=== PATIENT | female | born 1970 | race Caucasian/White ===

== ENCOUNTER 2017-06-13 11:47 | Emergency (ER) | payer OTHER ==
--- NOTE | 2017-06-13 12:14 | UC ---
Jennifer Ramos Rebecca, scribed for Che Persaud MD on 06/13/17 at 1159 . Respiratory Complaint HPI - HPI Summary HPI Summary: Pt is a 47 y/o F who presents to [facility] c/o sinus pressure and drainage for multiple weeks. She has been taking Sudafed to treat the sx. Sx aggravated and alleviated by nothing. Additionally c/o throat pain, dizziness and generalized weakness. Notes loose stool which she believes is secondary to Sudafed. Denies fever, cough, CP, SOB and N/V. PMHx sinus infections, bronchitis and PNA. Was last treated for a sinus infection with Abx in early spring of this year. Pt recently moved to the area from [place]. - History of Current Complaint Chief Complaint: UCRespiratory Stated Complaint: URI Time Seen by Provider: 06/13/17 11:56 Hx Obtained From: Patient Hx Last Menstrual Period: iud Onset/Duration: Lasting Weeks, Still Present Severity Currently: None Pain Intensity: 0 Pain Scale Used: 0-10 Numeric Aggravating Factors: Nothing Alleviating Factors: Nothing Associated Signs And Symptoms: Positive: Dizziness, Nasal Congestion. Negative : Fever Related History: Similar Episode/Dx as: - Sinus infections - Allergies/Home Medications Allergies/Adverse Reactions: Allergies Allergy/AdvReac Type Severity Reaction Status Date / Time Azithromycin Allergy Abdominal Verified 06/13/17 11:55 Pain Codeine Allergy Hives Verified 06/13/17 11:55 Penicillins Allergy Hives/Diff. Verified 06/13/17 11:55 Breathing/I tching PMH/Surg Hx/FS Hx/Imm Hx - Additional Past Medical History Additional PMH: PMHx: Sinus infections Previously Healthy: Yes Respiratory History: Bronchitis, Pneumonia - Surgical History Surgical History: None - Family History Known Family History: Positive: Other - Neagtive FHx allergies and asthma - Social History Occupation: Employed Full-time Lives: With Family Alcohol Use: None Substance Use Type: None Smoking Status (MU): Never Smoked Tobacco Review of Systems Constitutional: Other - Generalized weakness Skin: Negative Eyes: Negative ENT: Sore Throat, Nasal Discharge, Sinus Congestion Respiratory: Negative Cardiovascular: Negative Gastrointestinal: Other - Loose stool Genitourinary: Negative Motor: Negative Neurovascular: Negative Musculoskeletal: Negative Neurological: Other - Dizziness Psychological: Negative All Other Systems Reviewed And Are Negative: Yes - Comments Additional Review of Systems Comments: NEGATIVE: Fever, cough, CP, SOB and N/V. Physical Exam Triage Information Reviewed: Yes Appearance: No Pain Distress, Ill-Appearing - looks mildly unwell Vital Signs: Initial Vital Signs Temp 98.2 F 06/13/17 11:51 Pulse 76 06/13/17 11:51 Resp 18 06/13/17 11:51 BP 120/80 06/13/17 11:51 Pulse Ox 100 06/13/17 11:51 Eyes: Positive: Conjunctiva Clear ENT: Positive: Pharyngeal erythema, Nasal drainage, TM dull - bilateral serous fluid Dental Exam: Normal Neck: Positive: Supple, Nontender, No Lymphadenopathy Respiratory: Positive: Lungs clear, Normal breath sounds Cardiovascular: Positive: RRR, No Murmur Musculoskeletal Exam: Normal Psychological Exam: Normal Skin Exam: Normal UC Diagnostic Evaluation - Laboratory O2 Sat by Pulse Oximetry: 100 Respiratory Course/Dx - Course Course Of Treatment: Pt medications reviewed. Cephalexin used for treatment of sinusitis (has used in the past without allergic reactions.). - Differential Dx/Diagnosis Provider Diagnoses: acute pansinusitis. Discharge - Discharge Plan Condition: Stable Disposition: HOME Prescriptions: Cephalexin CAP* [Keflex 500 CAP*] 500 mg PO TID #30 cap Patient Education Materials: Sinusitis (ED) Additional Instructions: You have been prescribed cephalexin for treatment of sinusitis. Continue use of pseudoephedrine for relief of symptoms, along with ibuprofen 600mg three times daily for control of pain. Ensure that you get adequate rest and fluids. The use of saline nose spray and/or a steroid spray like Flonase (over the counter) might also help to relieve sinus pressure. The documentation as recorded by the Jennifer tarango Rebecca accurately reflects the service I personally performed and the decisions made by me, Che Persaud MD.
== END 2017-06-13 12:16 | disposition home or self-care (01) ==
LOC: UCEAST 11:47
DX: J01.40 Acute pansinusitis, unspecified (principal); Z88.3 Allergy status to other anti-infective agents; Z88.0 Allergy status to penicillin
CPT/HCPCS: 99202; G0463

== ENCOUNTER 2017-11-10 09:25 | Emergency (ER) | payer OTHER ==
[2017-11-10 09:33] VITALS: BP 117/75
--- NOTE | 2017-11-10 09:38 | UC ---
Respiratory Complaint HPI - HPI Summary HPI Summary: This 47 showed lady comes to urgent care today with chief complaint of cough body aches of feeling chilled euceda feels feverish no known temperature her daughter was recently diagnosed with influenza and started on Tamiflu - History of Current Complaint Chief Complaint: UCGeneralIllness Stated Complaint: COUGH, AND CHEST CONGESTION Time Seen by Provider: 11/10/17 09:37 Hx Obtained From: Patient Hx Last Menstrual Period: iud ?: No Onset/Duration: Sudden Onset, Lasting Days - 1, Still Present Timing: Constant Severity Initially: Moderate Severity Currently: Moderate Pain Intensity: 3 Pain Scale Used: 0-10 Numeric Character: Cough: Nonproductive Aggravating Factors: Nothing Alleviating Factors: Nothing Associated Signs And Symptoms: Positive: Chills, URI - Allergies/Home Medications Allergies/Adverse Reactions: Allergies Allergy/AdvReac Type Severity Reaction Status Date / Time azithromycin Allergy Abdominal Verified 11/10/17 09:33 Pain codeine Allergy Hives Verified 11/10/17 09:33 Penicillins Allergy Hives Verified 11/10/17 09:33 PMH/Surg Hx/FS Hx/Imm Hx Previously Healthy: Yes - Surgical History Surgical History: None - Family History Known Family History: Positive: None, Other - Neagtive FHx allergies and asthma - Social History Occupation: Employed Full-time Lives: With Family Alcohol Use: None Substance Use Type: None Smoking Status (MU): Never Smoked Tobacco Review of Systems Constitutional: Chills Skin: Negative Eyes: Negative ENT: Nasal Discharge Respiratory: Cough Cardiovascular: Negative Gastrointestinal: Negative Genitourinary: Negative Motor: Negative Neurovascular: Negative Musculoskeletal: Arthralgia Neurological: Headache Psychological: Negative Is Patient Immunocompromised?: No All Other Systems Reviewed And Are Negative: Yes Physical Exam Triage Information Reviewed: Yes Appearance: Well-Appearing, No Pain Distress, Well-Nourished Vital Signs: Initial Vital Signs Temp 97.8 F 11/10/17 09:29 Pulse 77 11/10/17 09:29 Resp 20 11/10/17 09:29 BP 117/75 11/10/17 09:29 Pulse Ox 99 11/10/17 09:29 Vital Signs Reviewed: Yes Eye Exam: Normal Eyes: Positive: Conjunctiva Clear ENT Exam: Normal ENT: Positive: Normal ENT inspection, Hearing grossly normal, Pharynx normal, TMs normal, Uvula midline. Negative: Nasal congestion, Nasal drainage, Tonsillar swelling, Tonsillar exudate, Trismus, Muffled voice, Hoarse voice, Dental tenderness, Sinus tenderness Dental Exam: Normal Neck exam: Normal Neck: Positive: Supple, Nontender, No Lymphadenopathy Respiratory Exam: Normal Respiratory: Positive: Chest non-tender, Lungs clear, Normal breath sounds, No respiratory distress, No accessory muscle use Cardiovascular Exam: Normal Cardiovascular: Positive: RRR, No Murmur, Pulses Normal, Brisk Capillary Refill Musculoskeletal Exam: Normal Musculoskeletal: Positive: Strength Intact, ROM Intact, No Edema Neurological Exam: Normal Neurological: Positive: Alert, Muscle Tone Normal Psychological Exam: Normal Skin Exam: Normal UC Diagnostic Evaluation - Laboratory O2 Sat by Pulse Oximetry: 99 Diagnostic Studies Comment: Influenza A and influenza B are both negative Respiratory Course/Dx - Course Course Of Treatment: Rest increase fluids Tylenol and ibuprofen for pain patient wishes to be a preventative dose Tamiflu is to her child has the flu and she's had severe pneumonias in the past. Patient can follow up with primary care return to the urgent care as needed for change or worsening in symptoms - Differential Dx/Diagnosis Provider Diagnoses: Influenza Exposure, URI Discharge - Discharge Plan Condition: Stable Disposition: HOME Prescriptions: Oseltamivir CAP* [Tamiflu CAP*] 75 mg PO DAILY #10 cap Patient Education Materials: Upper Respiratory Infection (ED) Referrals: [facility] [Outside] - If Needed Additional Instructions: I prescribed the preventative dose of Tamiflu for you in light of the fact her daughter has influenza and you have a history of those bad pneumonias to help decrease the chance of infection in your lungs if you have worsening pain fevers chills please radiate rechecked here at the urgent care or with primary care for provider
== END 2017-11-10 10:15 | disposition home or self-care (01) ==
LOC: UCEAST 09:25
DX: J06.9 Acute upper respiratory infection, unspecified (principal); Z20.828 Contact with and (suspected) exposure to other viral communicable diseases; Z88.1 Allergy status to other antibiotic agents; Z88.5 Allergy status to narcotic agent; Z88.0 Allergy status to penicillin
CPT/HCPCS: 87502; 99212; G0463

== ENCOUNTER 2017-12-06 08:54 | Emergency (ER) | payer OTHER ==
--- NOTE | 2017-12-06 11:18 | RAD ---
INDICATION: Shortness of breath and cough. COMPARISON: There are no prior studies available for comparison. TECHNIQUE: Dual-energy PA and lateral views of the chest were obtained. FINDINGS: The heart is within normal limits in size. Mediastinal and hilar contours appear within normal limits. The lungs are clear. No pleural effusion is present. IMPRESSION: NO EVIDENCE FOR ACTIVE CARDIOPULMONARY DISEASE.
[2017-12-06 11:21] VITALS: BP 140/80
--- NOTE | 2017-12-06 11:30 | UC ---
Respiratory Complaint HPI - HPI Summary HPI Summary: Patient presents with over a month of upper respiratory symptoms including cough , congestion, postnasal drainage, left ear fullness, sore throat. States she has mild shortness of breath and feels wheezy at night time. Has had asthmatic bronchitis in the past. Has albuterol inhalers at home but they are so she has not used them. She denies fever, nausea/vomiting/diarrhea. She states she has been intermittently symptomatic for almost a year. She is also concerned because she has had pneumonia 2 times. - History of Current Complaint Chief Complaint: UCGeneralIllness Stated Complaint: COUGH,COLD,ST Time Seen by Provider: 12/06/17 10:14 Hx Obtained From: Patient Hx Last Menstrual Period: pt states some spotting - has mirena Onset/Duration: Gradual Onset, Lasting Weeks, Still Present Timing: Constant Severity Initially: Moderate Severity Currently: Moderate Pain Intensity: 4 Pain Scale Used: 0-10 Numeric Character: Cough: Nonproductive Aggravating Factors: Nothing Alleviating Factors: Nothing Associated Signs And Symptoms: Positive: Dyspnea, Wheezing, URI, Nasal Congestion. Negative: Fever, Chills - Allergies/Home Medications Allergies/Adverse Reactions: Allergies Allergy/AdvReac Type Severity Reaction Status Date / Time azithromycin Allergy Abdominal Verified 11/10/17 09:33 Pain codeine Allergy Hives Verified 11/10/17 09:33 Penicillins Allergy Hives Verified 11/10/17 09:33 aspirin AdvReac Abdominal Verified 12/06/17 09:04 Pain Home Medications: Home Medications Ascorbic Acid TAB* [Vitamin C TAB*] 500 mg PO DAILY 12/06/17 [History Confirmed 12/06/17] Cholecalciferol TAB* [Vitamin D TAB*] 5,000 units PO DAILY 12/06/17 [History Confirmed 12/06/17] Aurora-3 Fatty Acids [Aurora-3] 1,000 mg PO DAILY 12/06/17 [History Confirmed ] PMH/Surg Hx/FS Hx/Imm Hx - Additional Past Medical History Additional PMH: ALLERGIES - Surgical History Surgical History: Yes Surgery Procedure, Year, and Place: breast biopsy 2012 - Family History Known Family History: Positive: Hypertension, Other - Neagtive FHx allergies and asthma - Social History Alcohol Use: Daily Alcohol Amount: 1 glass wine/ night when well Substance Use Type: None Smoking Status (MU): Never Smoked Tobacco Review of Systems Constitutional: Negative ENT: Sore Throat, Ear Ache, Nasal Discharge Respiratory: Shortness Of Breath, Cough Cardiovascular: Negative Gastrointestinal: Negative All Other Systems Reviewed And Are Negative: Yes Physical Exam Triage Information Reviewed: Yes Appearance: Well-Appearing, No Pain Distress, Well-Nourished Vital Signs: Initial Vital Signs Temp 97.7 F 12/06/17 09:07 Pulse 86 12/06/17 09:07 Resp 20 12/06/17 09:07 BP 127/66 12/06/17 09:07 Pulse Ox 99 12/06/17 09:07 Vital Signs Reviewed: Yes Eyes: Positive: Conjunctiva Clear ENT: Positive: Hearing grossly normal, Pharynx normal, TMs normal Neck: Positive: Supple, Nontender, No Lymphadenopathy Respiratory Exam: Normal Cardiovascular Exam: Normal Abdomen Description: Positive: Soft Musculoskeletal: Positive: No Edema Neurological: Positive: Alert Psychological: Positive: Age Appropriate Behavior Skin: Negative: rashes UC Diagnostic Evaluation - Laboratory O2 Sat by Pulse Oximetry: 99 - Radiology Xray Interpretation: No Acute Changes - CXR Radiology Interpretation Completed By: Radiologist Respiratory Course/Dx - Differential Dx/Diagnosis Provider Diagnoses: CHRONIC COUGH/ALLERGIES Discharge - Sign-Out/Discharge Documenting (check all that apply): Discharge - Discharge Plan Condition: Stable Disposition: HOME Prescriptions: Albuterol HFA INHALER* [Ventolin HFA Inhaler*] 2 puff INH Q4H PRN #1 mdi PRN Reason: Shortness Of Breath predniSONE TAB* [Deltasone TAB*] 50 mg PO DAILY #5 tab Patient Education Materials: Allergic Rhinitis (ED), Chronic Cough (ED) Referrals: No Primary Care Phys,NOPCP [Primary Care Provider] - Additional Instructions: Chest x-ray today was unremarkable. Given the chronic nature of your symptoms over the preceding year you would likely benefit from evaluation by an hose stripper. Please call 1 of the offices listed below to set up an appointment. We will treat for allergies with prednisone. Also would recommend you take a daily antihistamine such as Claritin, Zyrtec or Lexus. We'll refill your albuterol today. No indication for antibiotics today. Follow-up with a PCP or return here for evaluation if your symptoms worsen or change. [facility] Address: [address], [place] [address] [facility] [address] [place], [place] [address] CALL THE NUMBER BELOW FOR ASSISTANCE IN ESTABLISHING WITH A PCP An additional resource available to assist in finding the appropriate physician for your health care needs is the [facility] ([facility]). You may contact them by calling [phone]. - Billing Disposition and Condition Condition: STABLE Disposition: HOME
== END 2017-12-06 11:55 | disposition home or self-care (01) ==
LOC: UCEAST 08:54
DX: R05 Cough (principal); J30.9 Allergic rhinitis, unspecified; R06.02 Shortness of breath; Z88.6 Allergy status to analgesic agent; Z88.1 Allergy status to other antibiotic agents; Z88.5 Allergy status to narcotic agent; Z88.0 Allergy status to penicillin
CPT/HCPCS: 71046; 99212; G0463